=== PATIENT | male | born 1990 | race American Indian/Alaskan Native ===

== ENCOUNTER 2019-01-04 03:26 | Emergency (ER) | payer OTHER ==
[2019-01-04 04:31] LABS: Hematocrit 44.8 % (35.5-45.6); Hemoglobin 15.5 gm/dl (11.8-15.2); Mean Corpuscular HGB Conc 35 % (32-34); Mean Corpuscular Volume 91 fl (84-94); Platelet Count 231 K/mm3 (140-440); Red Blood Count 4.95 M/mm3 (3.65-5.03); Red Cell Distribution Width 13.9 % (13.2-15.2)
[2019-01-04 04:53] LABS: BUN/Creatinine Ratio 15; Blood Urea Nitrogen 17 mg/dL (9-20); Calcium 9.1 mg/dL (8.4-10.2); Hemolysis Index 9
--- NOTE | 2019-01-04 05:05 | XRay Report ---
CHEST 1 VIEW INDICATION / CLINICAL INFORMATION: Chest Pain. COMPARISON: None available. FINDINGS: SUPPORT DEVICES: None. HEART / MEDIASTINUM: No significant abnormality. LUNGS / PLEURA: No significant pulmonary or pleural abnormality.. No pneumothorax. ADDITIONAL FINDINGS: No significant additional findings. IMPRESSION: 1. No acute findings. Signer Name: Clyde Perez MD Signed: 01/04/2019 5:01 AM Workstation Name: [id number]
--- NOTE | 2019-01-04 05:20 | Cat Scan Report ---
CT HEAD WITHOUT CONTRAST INDICATION: seizure TECHNIQUE: Axial slices were obtained through the head. Coronal and sagittal reformatted images were obtained. COMPARISON: None available. FINDINGS: There is no intracranial hemorrhage or extra-axial fluid collection. Ventricles, basilar cisterns, an d sulci appear within normal limits for age. There is no mass lesion or midline shift. No acute pham torial infarct is identified. Bone windows demonstrate no acute osseous abnormality. Paranasal sinuses and mastoid air cells appear clear. TECHNIQUE: All CT scans at this facility use dose modulation, iterative reconstruction, automated ex posure control, weight based dosing, when appropriate, to reduce radiation dose to as low as reasonab ly achievable. IMPRESSION: 1. No acute intracranial abnormality. Signer Name: Clyde Perez MD Signed: 01/04/2019 5:16 AM Workstation Name: [id number]
[2019-01-04] MEDS ORDERED: KEPPRA 1,000 MG/NS 0.75% 100ML 1,000 MG/100 ML BAG IV ONE (06:50)
--- NOTE | 2019-01-04 07:01 | Emergency Department Report ---
ED Seizure HPI - General Chief Complaint: Seizure Stated Complaint: SEIZURE Time Seen by Provider: 01/04/19 06:36 Source: patient Mode of arrival: Ambulatory Limitations: No Limitations - History of Present Illness Initial Comments: Patient is 28 years old male with no significant past medical history. Patient presented to the ER accompanied by his girlfriend. Patient is complaining of one episode of a seizure. Described by his girlfriend as a tonic clonic seizure. Patient did not have any history of seizure before. Girlfriend stated that patient went to sleep immediately after the seizure and he became stung also. Patient denied any recent head injury, fever or chills or neck pain. Patient is back to normal. MD Complaint: seizure -: Sudden, This morning Description of Episode: loss of consciousness, tonic-clonic movement, post-event confusion Witnessed:: Yes Seizure History: none Place: home Possible Precipitating Event: none Associated Symptoms: denies other symptoms Treatments Prior to Arrival: none - Related Data Home Medications Medication Instructions Recorded Confirmed Last Taken No Known Home Medications [No 01/04/19 01/04/19 Unknown Reported Home Medications] Allergies Allergy/AdvReac Type Severity Reaction Status Date / Time No Known Allergies Allergy Unverified 01/04/19 04:04 ED Review of Systems ROS: Stated complaint: SEIZURE Other details as noted in HPI Comment: All other systems reviewed and negative Constitutional: denies: chills, fever Respiratory: denies: cough, shortness of breath, SOB with exertion Cardiovascular: denies: chest pain, palpitations Gastrointestinal: denies: abdominal pain, nausea, vomiting Musculoskeletal: denies: back pain ED Past Medical Hx - Past Medical History Previous Medical History?: No - Surgical History Past Surgical History?: No - Social History Smoking Status: Current Every Day Smoker - Medications Home Medications: Home Medications Medication Instructions Recorded Confirmed Last Taken Type No Known Home Medications [No 01/04/19 01/04/19 Unknown History Reported Home Medications] ED Physical Exam - General Limitations: No Limitations General appearance: alert, in no apparent distress - Head Head exam: Present: atraumatic, normocephalic, normal inspection - Eye Eye exam: Present: normal appearance, PERRL - ENT ENT exam: Present: other (tongue abrasion) - Neck Neck exam: Present: normal inspection, full ROM. Absent: tenderness, meningismus, lymphadenopathy, thyromegaly - Respiratory Respiratory exam: Present: normal lung sounds bilaterally - Cardiovascular Cardiovascular Exam: Present: regular rate, normal rhythm, normal heart sounds - GI/Abdominal GI/Abdominal exam: Present: soft, normal bowel sounds. Absent: distended, tenderness, guarding, rebound, rigid, organomegaly, mass, bruit, pulsatile mass, hernia - Extremities Exam Extremities exam: Present: normal inspection, full ROM, normal capillary refill. Absent: tenderness, pedal edema, joint swelling, calf tenderness - Back Exam Back exam: Present: normal inspection, full ROM. Absent: CVA tenderness (R), CVA tenderness (L) - Neurological Exam Neurological exam: Present: alert, oriented X3, CN II-XII intact, normal gait, reflexes normal - Psychiatric Psychiatric exam: Present: normal mood - Skin Skin exam: Present: warm, intact, normal color ED Course Vital Signs 01/04/19 01/04/19 01/04/19 03:47 03:48 06:20 Temperature 98.4 F 98.2 F Pulse Rate 86 85 65 Respiratory 16 18 Rate Blood Pressure 137/83 Blood Pressure 129/78 [Left] O2 Sat by Pulse 99 99 98 Oximetry 01/04/19 07:16 Temperature 98.7 F Pulse Rate 68 Respiratory 20 Rate Blood Pressure Blood Pressure 124/76 [Left] O2 Sat by Pulse 100 Oximetry ED Medical Decision Making - Lab Data Result diagrams: 01/04/19 04:16 01/04/19 04:16 - Radiology Data Radiology results: report reviewed - Medical Decision Making Patient is 28 years old male with no significant past medical history. Patient presented to the ER accompanied by his girlfriend. Patient is complaining of one episode of a seizure. Described by his girlfriend as a tonic clonic seizure. Patient did not have any history of seizure before. Girlfriend stated that patient went to sleep immediately after the seizure and he became stung also. Patient denied any recent head injury, fever or chills or neck pain. Patient is back to normal. Patient received Keppra 1 g IV in the ER. Labs reviewed and is unremarkable. CT bran is negative for acute finding. No seizure activity noticed in the ER. Patient advised not to operate machinery until he see his neurologist. Patient started on Keppra 500 mg twice a day and strongly advised to follow-up with his primary care physician for a referral to neurologist. Patient also advised to return to the ER if he developed any new symptoms. Critical care attestation.: If time is entered above; I have spent that time in minutes in the direct care of this critically ill patient, excluding procedure time. ED Disposition Clinical Impression: New onset seizure Disposition: DC-01 TO HOME OR SELFCARE Is pt being admited?: No Condition: Stable Instructions: New-Onset Seizure in Adults (ED) Referrals: LOLY HARGROVE MD [Primary Care Provider] - 3-5 Days
[2019-01-04 07:29] LABS: Bilirubin,Urine NEG (Negative); Blood,Urine SM (Negative); Color,Urine Straw (Yellow); Protein,Urine <15 mg/dL mg/dL (Negative); Urobilinogen,Urine < 2.0 mg/dL (<2.0)
[2019-01-04 07:30] LABS: Amphetamine Screen,Urine PRESUMPTIVE NEGATIVE; Benzodiazepines Screen,Urine PRESUMPTIVE NEGATIVE; Cocaine Screen,Urine PRESUMPTIVE NEGATIVE; Methadone Screen,Urine PRESUMPTIVE NEGATIVE; Opiate Screen,Urine PRESUMPTIVE NEGATIVE
[2019-01-04 07:49] LABS: Cannabinoid Screen,Urine PRESUMPTIVE POSITIVE
[2019-01-04 09:29] VITALS: BP 136/85
== END 2019-01-04 09:30 | disposition home or self-care (01) ==
LOC: ED 03:26
DX: R56.9 Unspecified convulsions (principal); F17.200 Nicotine dependence, unspecified, uncomplicated
CPT/HCPCS: 36415; 70450; 71045; 80048; 80307; 81001; 84484; 85027; 93005; 93010; 96365; 99285; J1953